=== PATIENT | male | born 1945 | race African-American/Black ===

== ENCOUNTER 2020-04-01 15:35 | Inpatient (IN) | payer OTHER, MEDICARE ==
[~2020-04-01] VITALS: Ht 177.8 cm; Wt 139.4 kg
[~2020-04-01 15:35] MED LIST: AMLO5TAB4 PO; ARMO150T2 PO; BACL20TA PO; CALC0.25 PO; CLON1PAT11 TD; DALF10TA PO; DOCU-138 PO; DOCU283E5 RC; DULO60CA44 PO; GABA-580 PO; MICO1POW2 MC; ONDA4SOL2 PO; TAMS-11 PO; TIZA-19 PO; TRAM50TA94 PO
[2020-04-01] MEDS ORDERED: SODIUM CHLORIDE 0.9% 1,000 ML IV ONE (15:48)
[2020-04-01] MEDS ORDERED: NALOXONE HCL 1 MG/ML 2ML VIAL IV ONE (16:00)
[2020-04-01 16:23] LABS: BASOPHILS % 0.7 % (0.0-2.0); EOSINOPHILS % 3.1 % (0.0-5.0); HEMATOCRIT. 30.1 % (42.0-52.0); HEMOGLOBIN. 10.1 g/dL (14.0-18.0); LYMPHOCYTES % 21.9 % (20.0-50.0); MEAN CORPUSCULAR HEMOGLOBIN 31.8 pg (28.0-32.0); MEAN CORPUSCULAR VOLUME 94.9 fL (80.0-94.0); MEAN PLATELET VOLUME 7.5 fl (7.4-10.4); MONOCYTES % 7.8 % (2.0-8.0); NEUTROPHILS % 66.5 % (40.0-76.0); PLATELET 251 x1000/uL (130-400); RED BLOOD CELL COUNT 3.17 mill/uL (4.7-6.1); RED CELL DISTRIBUTION WIDTH 15.2 % (11.6-14.6)
[2020-04-01 16:28] LABS: CHLORIDE 107 mEq/L (98-107)
[2020-04-01 16:29] LABS: INR 1.1; PROTHROMBIN TIME 11.5 sec (9.6-11.0)
[2020-04-01 16:32] LABS: ETHANOL BLOOD < 10 mg/dL
[2020-04-01 16:35] LABS: LDL CHOLESTEROL 114 mg/dL (5-100)
[2020-04-01 16:36] LABS: CREATINE KINASE 121 IU/L (39-308)
[2020-04-01] MEDS ORDERED: FUROSEMIDE 20MG/2ML VIAL IVP ONE (17:15)
[2020-04-01] MEDS ORDERED: CEFEPIME HCL 2000MG/VIAL INJ IV ONE (18:45)
[2020-04-01] MEDS ORDERED: VANCOMYCIN 1 G PREMIX 200 ML IV SCH (18:45)
[2020-04-01] MEDS ORDERED: AMPICILLIN 30MG/ML SYR IV ONE (18:45)
[2020-04-01 18:59] LABS: BG BASE EXCESS 0.9 mmol/L (-2.0-2.0); BG CARBOXYHEMOGLOBIN 0.3 % (0.5-1.5); BG DEOXYHEMOGLOBIN 3.5 % (0.0-5.0); BG FRACTION INSPIRED OXYGEN 24; BG HCO3 ACT 26.9 mmol/L (22.0-26.0); BG METHEMOGLOBIN 0.2 % (0.0-1.5); BG OXYGEN SATURATION 96.5 % (92.0-98.5); BG PCO2 48.8 mmHg (35.0-45.0); BG PH 7.359 (7.350-7.450); BG PO2 90.6 mmHg (75.0-100.0); BG SAMPLE SITE LEFT RADIAL; BG TOTAL HEMOGLOBIN 11.1 g/dL (12.0-18.0); BG VENT MODE NASAL CANNULA
[2020-04-01] MEDS ORDERED: LORAZEPAM 2MG/ML CPJ IV ONE (19:15)
[2020-04-01] MEDS ORDERED: HALOPERIDOL LACTATE 5MG/ML VIAL IM ONE (19:15)
[2020-04-01] MEDS ORDERED: CEFEPIME 2,000 MG in DEXT 5% WATER 100 ML IV SCH (19:15)
[2020-04-01] MEDS ORDERED: ETOMIDATE 2MG/ML 10ML VIAL IV ONE (20:15)
[2020-04-01] MEDS ORDERED: ROCURONIUM BROMIDE 10MG/ML VIAL 5ML IV ONE (20:15)
[2020-04-01] MEDS: ACYCLOVIR INJ 500 MG in DEXT 5% WATER 100 ML IV SCH (21:10)
[2020-04-01 21:19] LABS: CLARITY URINE CLOUDY (CLEAR); COLOR URINE YELLOW (YELLOW); KETONES URINE TRACE (NEGATIVE); LEUKOCYTE ESTERASE URINE 2+ (NEGATIVE); NITRITE URINE NEGATIVE (NEGATIVE); OCCULT BLOOD URINE NEGATIVE (NEGATIVE); PROTEIN URINE 1+ (NEGATIVE); SPECIFIC GRAVITY URINE 1.018 (1.005-1.030)
[2020-04-01 21:29] LABS: *AMPHETAMINES SCREEN URINE NEGATIVE (NEGATIVE); *BARBITURATES SCREEN URINE NEGATIVE (NEGATIVE); *BENZODIAZEPINES SCREEN URINE NEGATIVE (NEGATIVE); *COCAINE SCREEN URINE NEGATIVE (NEGATIVE); METHADONE URINE SCREEN NEGATIVE (NEGATIVE); OPIATES URINE SCREEN NEGATIVE (NEGATIVE)
[2020-04-01 21:30] LABS: CANNABINOID URINE SCREEN NEGATIVE (NEGATIVE); PHENCYCLIDINE URINE SCREEN NEGATIVE (NEGATIVE)
[2020-04-01] MEDS ORDERED: PROPOFOL 10MG/ML 100ML 100 ML IV SCH (21:30)
[2020-04-01] MEDS ORDERED: AMPICILLIN 500 MG in SODIUM CHLORIDE 0.9% 50 ML IV SCH (23:00)
[2020-04-01] MEDS ORDERED: ONDANSETRON HCL 4MG/2ML INJ IV PRN (23:15)
[2020-04-01] MEDS ORDERED: ENOXAPARIN 40MG/0.4ML SYR SUBCUT SCH (23:15)
[2020-04-01] MEDS ORDERED: IOHEXOL-350 100 ML BOTTLE ONE (23:22)
[2020-04-01 23:51] LABS: BG BASE EXCESS 3.5 mmol/L (-2.0-2.0); BG CARBOXYHEMOGLOBIN 0.3 % (0.5-1.5); BG DEOXYHEMOGLOBIN 0.8 % (0.0-5.0); BG FRACTION INSPIRED OXYGEN 100; BG HCO3 ACT 26.9 mmol/L (22.0-26.0); BG OXYGEN SATURATION 99.2 % (92.0-98.5); BG OXYHEMOGLOBIN 98.9 % (94.0-97.0); BG PCO2 36.2 mmHg (35.0-45.0); BG PH 7.489 (7.350-7.450); BG PO2 213.2 mmHg (75.0-100.0); BG SAMPLE SITE RIGHT RADIAL; BG TIDAL VOLUME(mL) 550 mL; BG TOTAL HEMOGLOBIN 10.5 g/dL (12.0-18.0); BG VENT MODE VENT - A/C; BG VENT RATE 18 set
[2020-04-02] VITALS (48 sets, daily range): BP systolic 134–226; BP diastolic 71–133
[2020-04-02] MEDS ORDERED: CEFTRIAXONE 1 G PREMIX 50 ML IV SCH
[2020-04-02] MEDS: DEXT 5%/0.45% NACL KCL 10MEQ/L 1,000 ML IV SCH ×2 (00:45→17:48)
[2020-04-02] MEDS: ACYCLOVIR INJ 500 MG in DEXT 5% WATER 100 ML IV SCH (02:45)
[2020-04-02 07:52] LABS: BASOPHILS % 0.5 % (0.0-2.0); EOSINOPHILS % 3.3 % (0.0-5.0); HEMATOCRIT. 34.2 % (42.0-52.0); HEMOGLOBIN. 11.7 g/dL (14.0-18.0); LYMPHOCYTES % 16.7 % (20.0-50.0); MEAN CORPUSCULAR VOLUME 93.3 fL (80.0-94.0); MEAN PLATELET VOLUME 7.2 fl (7.4-10.4); MONOCYTES % 10.1 % (2.0-8.0); NEUTROPHILS % 69.4 % (40.0-76.0); PLATELET 244 x1000/uL (130-400); RED BLOOD CELL COUNT 3.67 mill/uL (4.7-6.1)
[2020-04-02 08:09] LABS: CHLORIDE 107 mEq/L (98-107)
[2020-04-02] MEDS ORDERED: LIDOCAINE HCL 1% 20ML VIAL (Pyxis) INJ ONE (08:34)
[2020-04-02] MEDS ORDERED: ENOXAPARIN 30MG/0.3ML SYR SUBCUT SCH (09:00)
[2020-04-02] MEDS ORDERED: FENTANYL CITRATE/PF 1,000 MCG in SODIUM CHLORIDE 0.9% 80 ML IV PRN (10:00)
[2020-04-02] MEDS ORDERED: MIDAZOLAM HCL 100 MG in DEXT 5% WATER 80 ML IV PRN (10:00)
[2020-04-02 10:11] LABS: BG BASE EXCESS 1.5 mmol/L (-2.0-2.0); BG CARBOXYHEMOGLOBIN 0.3 % (0.5-1.5); BG FRACTION INSPIRED OXYGEN 60; BG HCO3 ACT 27.4 mmol/L (22.0-26.0); BG METHEMOGLOBIN 0.4 % (0.0-1.5); BG OXYHEMOGLOBIN 98.3 % (94.0-97.0); BG PCO2 48.3 mmHg (35.0-45.0); BG PH 7.372 (7.350-7.450); BG PO2 200.3 mmHg (75.0-100.0); BG SAMPLE SITE RIGHT RADIAL; BG TIDAL VOLUME(mL) 550 mL; BG TOTAL HEMOGLOBIN 13.3 g/dL (12.0-18.0); BG VENT MODE VENT - A/C; BG VENT RATE 18 set
[2020-04-02] MEDS ORDERED: ENALAPRIL 2.5MG/2ML VIAL 2ML IV SCH (12:00)
[2020-04-02] MEDS ORDERED: POTASSIUM CHLORIDE INJ 40 MEQ in DEXT 5% WATER 250 ML IV NR (13:00)
[2020-04-02 13:24] LABS: T4 FREE 1.26 ng/dL (0.76-1.46)
[2020-04-02] MEDS: HYDRALAZINE 20MG/ML VIAL IV PRN ×2 (13:24→20:28)
[2020-04-02] MEDS ORDERED: MICO71PO11 TP (13:56)
[2020-04-02] MEDS ORDERED: ATEN100T PO (13:56)
[2020-04-02] MEDS ORDERED: FINA5TAB11 PO (13:56)
[2020-04-02] MEDS ORDERED: HYDR-4135 PO (13:56)
[2020-04-02] MEDS ORDERED: MINO2.5T2 PO (13:56)
[2020-04-02] MEDS ORDERED: TIZA4CAP6 PO (13:56)
[2020-04-02] MEDS ORDERED: ASCO500C15 PO (13:56)
[2020-04-02] MEDS ORDERED: FURO20TA4 PO (13:56)
[2020-04-02] MEDS ORDERED: AMIT25TA9 PO (13:56)
[2020-04-02] MEDS ORDERED: AMAN100C16 PO (13:56)
[2020-04-02] MEDS: NITROGLYCERIN 50MG PREMIX 250 ML IV PRN (16:18)
[2020-04-02] MEDS ORDERED: IPRATROPIUM/ALBUTEROL 0.5-3(2.5)MG/3ML NEB HHN PRN (17:00)
[2020-04-02 17:30] LABS: CREATINE KINASE 189 IU/L (39-308)
[2020-04-02 17:31] LABS: CREATINE KINASE MB FRACTION 3.7 ng/mL (0.5-3.6)
[2020-04-02] MEDS: LEVOFLOXACIN 750MG PREMIX 150 ML IV SCH (17:49)
[2020-04-02] MEDS: ENALAPRIL 2.5MG/2ML VIAL 2ML IV SCH (17:49)
[2020-04-02] MEDS: FENTANYL CITRATE/PF 1,000 MCG in SODIUM CHLORIDE 0.9% 80 ML IV PRN (18:42)
[2020-04-02] MEDS: MIDAZOLAM HCL 100 MG in DEXT 5% WATER 80 ML IV PRN (18:43)
[2020-04-02] MEDS: IPRATROPIUM/ALBUTEROL 0.5-3(2.5)MG/3ML NEB HHN SCH (21:34)
[2020-04-02 22:33] LABS: VITAMIN B12 SERUM 439 pg/mL (211-911)
[2020-04-03] VITALS (92 sets, daily range): BP systolic 112–200; BP diastolic 57–116
[2020-04-03] MEDS: ENALAPRIL 2.5MG/2ML VIAL 2ML IV SCH ×4 (00:01→17:26)
[2020-04-03 00:37] LABS: CREATINE KINASE 140 IU/L (39-308)
[2020-04-03 00:38] LABS: CREATINE KINASE MB FRACTION 1.7 ng/mL (0.5-3.6)
[2020-04-03] MEDS: HYDRALAZINE 20MG/ML VIAL IV PRN ×2 (02:13→18:45)
[2020-04-03] MEDS: IPRATROPIUM/ALBUTEROL 0.5-3(2.5)MG/3ML NEB HHN SCH ×4 (03:59→21:25)
[2020-04-03 06:03] LABS: CREATINE KINASE 131 IU/L (39-308)
[2020-04-03 08:42] LABS: BG BASE EXCESS 6.9 mmol/L (-2.0-2.0); BG CARBOXYHEMOGLOBIN 0.2 % (0.5-1.5); BG DEOXYHEMOGLOBIN 2.2 % (0.0-5.0); BG FRACTION INSPIRED OXYGEN 40; BG HCO3 ACT 30.7 mmol/L (22.0-26.0); BG METHEMOGLOBIN 0.8 % (0.0-1.5); BG OXYGEN SATURATION 97.8 % (92.0-98.5); BG OXYHEMOGLOBIN 96.8 % (94.0-97.0); BG PCO2 40.6 mmHg (35.0-45.0); BG PH 7.497 (7.350-7.450); BG PO2 115.8 mmHg (75.0-100.0); BG SAMPLE SITE RIGHT RADIAL; BG TIDAL VOLUME(mL) 550 mL; BG TOTAL HEMOGLOBIN 11.5 g/dL (12.0-18.0); BG VENT MODE VENT - A/C; BG VENT RATE 18 set
[2020-04-03] MEDS: PANTOPRAZOLE SODIUM 40 MG/VIAL IV SCH (09:04)
[2020-04-03] MEDS: ENOXAPARIN 40MG/0.4ML SYR SUBCUT SCH (09:05)
[2020-04-03 09:13] LABS: BASOPHILS % 0.8 % (0.0-2.0); EOSINOPHILS % 1.9 % (0.0-5.0); HEMATOCRIT. 31.8 % (42.0-52.0); HEMOGLOBIN. 10.8 g/dL (14.0-18.0); LYMPHOCYTES % 15.3 % (20.0-50.0); MEAN CORPUSCULAR HEMOGLOBIN 31.7 pg (28.0-32.0); MEAN CORPUSCULAR VOLUME 93.7 fL (80.0-94.0); MEAN PLATELET VOLUME 7.9 fl (7.4-10.4); MONOCYTES % 8.7 % (2.0-8.0); NEUTROPHILS % 73.3 % (40.0-76.0); PLATELET 268 x1000/uL (130-400); RED BLOOD CELL COUNT 3.39 mill/uL (4.7-6.1); RED CELL DISTRIBUTION WIDTH 15.3 % (11.6-14.6)
[2020-04-03 09:14] LABS: CHLORIDE 107 mEq/L (98-107)
[2020-04-03] MEDS: DEXT 5%/0.45% NACL KCL 10MEQ/L 1,000 ML IV SCH ×2 (10:35→16:49)
[2020-04-03] MEDS: FENTANYL CITRATE/PF 1,000 MCG in SODIUM CHLORIDE 0.9% 80 ML IV PRN (10:36)
[2020-04-03] MEDS ORDERED: POTASSIUM CHLORIDE INJ 40 MEQ in DEXT 5% WATER 250 ML IV SCH (12:00)
[2020-04-03] MEDS ORDERED: VANCOMYCIN 1 G PREMIX 200 ML IV SCH (12:00)
[2020-04-03] MEDS: NITROGLYCERIN 50MG PREMIX 250 ML IV PRN ×2 (13:49→18:05)
[2020-04-03] MEDS: METOCLOPRAMIDE HCL 10MG/2ML VIAL IV SCH ×2 (14:29→22:13)
[2020-04-03] MEDS: LEVOFLOXACIN 750MG PREMIX 150 ML IV SCH (17:25)
[2020-04-03] MEDS: ACETAMINOPHEN 325MG TABLET PO PRN (20:25)
[2020-04-04] VITALS (44 sets, daily range): BP systolic 96–221; BP diastolic 58–160
[2020-04-04] MEDS: IPRATROPIUM/ALBUTEROL 0.5-3(2.5)MG/3ML NEB HHN SCH ×4 (02:16→19:57)
[2020-04-04] MEDS: METOCLOPRAMIDE HCL 10MG/2ML VIAL IV SCH ×3 (06:32→21:22)
[2020-04-04] MEDS: ENALAPRIL 2.5MG/2ML VIAL 2ML IV SCH ×5 (06:33→23:25)
[2020-04-04] MEDS: NITROGLYCERIN 50MG PREMIX 250 ML IV PRN ×3 (06:42→20:47)
[2020-04-04 07:49] LABS: BASOPHILS % 0.5 % (0.0-2.0); EOSINOPHILS % 0.7 % (0.0-5.0); HEMATOCRIT. 29.4 % (42.0-52.0); HEMOGLOBIN. 9.9 g/dL (14.0-18.0); LYMPHOCYTES % 14.3 % (20.0-50.0); MEAN CORPUSCULAR HEMOGLOBIN 31.8 pg (28.0-32.0); MEAN CORPUSCULAR VOLUME 94.3 fL (80.0-94.0); MEAN PLATELET VOLUME 8.2 fl (7.4-10.4); MONOCYTES % 10.9 % (2.0-8.0); NEUTROPHILS % 73.6 % (40.0-76.0); PLATELET 225 x1000/uL (130-400); RED BLOOD CELL COUNT 3.12 mill/uL (4.7-6.1); RED CELL DISTRIBUTION WIDTH 15.4 % (11.6-14.6)
[2020-04-04 08:02] LABS: BG BASE EXCESS 7.5 mmol/L (-2.0-2.0); BG CARBOXYHEMOGLOBIN 0.3 % (0.5-1.5); BG FRACTION INSPIRED OXYGEN 40; BG HCO3 ACT 32.5 mmol/L (22.0-26.0); BG METHEMOGLOBIN 0.2 % (0.0-1.5); BG OXYHEMOGLOBIN 96.5 % (94.0-97.0); BG PCO2 47.9 mmHg (35.0-45.0); BG PO2 92.8 mmHg (75.0-100.0); BG SAMPLE SITE RIGHT RADIAL; BG TIDAL VOLUME(mL) 550 mL; BG TOTAL HEMOGLOBIN 10.9 g/dL (12.0-18.0); BG VENT MODE VENT - A/C; BG VENT RATE 16 set
[2020-04-04 09:54] LABS: CHLORIDE 106 mEq/L (98-107)
[2020-04-04] MEDS: ENOXAPARIN 40MG/0.4ML SYR SUBCUT SCH (09:56)
[2020-04-04] MEDS: PANTOPRAZOLE SODIUM 40 MG/VIAL IV SCH (09:56)
[2020-04-04] MEDS: ACETAMINOPHEN 325MG TABLET PO PRN ×3 (10:27→12:12)
[2020-04-04] MEDS: HYDRALAZINE HCL 50MG TABLET PO SCH ×2 (14:12→21:22)
[2020-04-04] MEDS: LEVOFLOXACIN 750MG PREMIX 150 ML IV SCH (19:44)
[2020-04-04] MEDS: HYDRALAZINE 20MG/ML VIAL IV PRN (21:22)
[2020-04-04] MEDS ORDERED: HYDRALAZINE HCL 100MG TABLET PO NR (22:45)
[2020-04-05] VITALS (58 sets, daily range): BP systolic 105–204; BP diastolic 49–126
[2020-04-05] MEDS: NITROGLYCERIN 50MG PREMIX 250 ML IV PRN ×5 (00:57→20:29)
[2020-04-05] MEDS: IPRATROPIUM/ALBUTEROL 0.5-3(2.5)MG/3ML NEB HHN SCH ×4 (02:03→20:14)
[2020-04-05] MEDS: DEXT 5%/0.45% NACL KCL 10MEQ/L 1,000 ML IV SCH (04:14)
[2020-04-05] MEDS: ENALAPRIL 2.5MG/2ML VIAL 2ML IV SCH ×4 (05:17→23:08)
[2020-04-05] MEDS: METOCLOPRAMIDE HCL 10MG/2ML VIAL IV SCH ×3 (05:17→21:58)
[2020-04-05] MEDS: HYDRALAZINE HCL 50MG TABLET PO SCH (05:17)
[2020-04-05 05:52] LABS: BASOPHILS % 0.8 % (0.0-2.0); EOSINOPHILS % 3.3 % (0.0-5.0); HEMATOCRIT. 29.7 % (42.0-52.0); LYMPHOCYTES % 10.8 % (20.0-50.0); MEAN CORPUSCULAR VOLUME 94.9 fL (80.0-94.0); MEAN PLATELET VOLUME 8.3 fl (7.4-10.4); MONOCYTES % 8.4 % (2.0-8.0); NEUTROPHILS % 76.7 % (40.0-76.0); PLATELET 234 x1000/uL (130-400); RED BLOOD CELL COUNT 3.13 mill/uL (4.7-6.1); RED CELL DISTRIBUTION WIDTH 15.3 % (11.6-14.6)
[2020-04-05 06:02] LABS: CHLORIDE 103 mEq/L (98-107)
[2020-04-05] MEDS: PANTOPRAZOLE SODIUM 40 MG/VIAL IV SCH (09:22)
[2020-04-05] MEDS: ENOXAPARIN 40MG/0.4ML SYR SUBCUT SCH (09:24)
[2020-04-05] MEDS: MIDAZOLAM HCL 100 MG in DEXT 5% WATER 80 ML IV PRN (10:22)
[2020-04-05] MEDS: ACETAMINOPHEN 325MG TABLET PO PRN (10:53)
[2020-04-05] MEDS ORDERED: DEXT IV SCH (12:30)
[2020-04-05] MEDS ORDERED: NACL IV SCH (12:30)
[2020-04-05] MEDS: LISINOPRIL 40MG TABLET PO SCH (13:09)
[2020-04-05] MEDS: DEXT 5%/0.45% NACL 1000ML 1,000 ML IV SCH (13:17)
[2020-04-05] MEDS: HYDRALAZINE HCL 100MG TABLET PO SCH ×2 (14:27→21:58)
[2020-04-05] MEDS: CLONIDINE 0.1MG TABLET PO SCH ×2 (14:31→21:58)
[2020-04-05] MEDS: LEVOFLOXACIN 750MG PREMIX 150 ML IV SCH (17:10)
[2020-04-05] MEDS: HYDRALAZINE 20MG/ML VIAL IV PRN (18:56)
[2020-04-05] MEDS: FENTANYL CITRATE/PF 1,000 MCG in SODIUM CHLORIDE 0.9% 80 ML IV PRN (20:29)
[2020-04-05] MEDS ORDERED: LABETALOL HCL 100MG TABLET PO SCH (21:00)
[2020-04-06] VITALS (80 sets, daily range): BP systolic 92–175; BP diastolic 47–124
[2020-04-06] MEDS: NITROGLYCERIN 50MG PREMIX 250 ML IV PRN (01:11)
[2020-04-06] MEDS: DEXT 5%/0.45% NACL 1000ML 1,000 ML IV SCH ×2 (01:11→15:19)
[2020-04-06] MEDS: IPRATROPIUM/ALBUTEROL 0.5-3(2.5)MG/3ML NEB HHN SCH ×4 (02:03→20:38)
[2020-04-06] MEDS: MIDAZOLAM HCL 100 MG in DEXT 5% WATER 80 ML IV PRN (02:16)
[2020-04-06] MEDS: HYDRALAZINE HCL 100MG TABLET PO SCH ×3 (05:08→21:58)
[2020-04-06] MEDS: CLONIDINE 0.1MG TABLET PO SCH ×3 (05:08→21:58)
[2020-04-06] MEDS: METOCLOPRAMIDE HCL 10MG/2ML VIAL IV SCH ×3 (05:08→21:58)
[2020-04-06] MEDS: ENALAPRIL 2.5MG/2ML VIAL 2ML IV SCH ×4 (05:09→23:51)
[2020-04-06] MEDS: ENOXAPARIN 40MG/0.4ML SYR SUBCUT SCH (08:32)
[2020-04-06] MEDS: PANTOPRAZOLE SODIUM 40 MG/VIAL IV SCH (08:32)
[2020-04-06] MEDS: LISINOPRIL 40MG TABLET PO SCH (08:32)
[2020-04-06 08:50] LABS: BG BASE EXCESS 3.1 mmol/L (-2.0-2.0); BG CARBOXYHEMOGLOBIN 0.3 % (0.5-1.5); BG DEOXYHEMOGLOBIN 1.5 % (0.0-5.0); BG FRACTION INSPIRED OXYGEN 40; BG HCO3 ACT 27.7 mmol/L (22.0-26.0); BG METHEMOGLOBIN 0.3 % (0.0-1.5); BG OXYGEN SATURATION 98.5 % (92.0-98.5); BG OXYHEMOGLOBIN 97.9 % (94.0-97.0); BG PCO2 42.7 mmHg (35.0-45.0); BG PO2 113.3 mmHg (75.0-100.0); BG SAMPLE SITE RIGHT RADIAL; BG TIDAL VOLUME(mL) 550 mL; BG TOTAL HEMOGLOBIN 10.5 g/dL (12.0-18.0); BG VENT MODE VENT - A/C; BG VENT RATE 16 set
[2020-04-06] MEDS ORDERED: FUROSEMIDE 40MG/4ML VIAL IVP SCH (15:15)
[2020-04-06] MEDS: LEVOFLOXACIN 750MG PREMIX 150 ML IV SCH (17:00)
[2020-04-07] VITALS (48 sets, daily range): BP systolic 100–175; BP diastolic 46–112
[2020-04-07] MEDS: IPRATROPIUM/ALBUTEROL 0.5-3(2.5)MG/3ML NEB HHN SCH ×4 (02:27→20:49)
[2020-04-07] MEDS: DEXT 5%/0.45% NACL 1000ML 1,000 ML IV SCH ×2 (05:45→17:06)
[2020-04-07] MEDS: METOCLOPRAMIDE HCL 10MG/2ML VIAL IV SCH ×3 (05:46→21:03)
[2020-04-07] MEDS: CLONIDINE 0.1MG TABLET PO SCH ×3 (05:46→21:03)
[2020-04-07] MEDS: HYDRALAZINE HCL 100MG TABLET PO SCH ×3 (05:46→21:03)
[2020-04-07] MEDS: ENALAPRIL 2.5MG/2ML VIAL 2ML IV SCH ×3 (06:22→17:05)
[2020-04-07 07:29] LABS: CHLORIDE 101 mEq/L (98-107); HEMATOCRIT. 33.3 % (42.0-52.0); HEMOGLOBIN. 11.1 g/dL (14.0-18.0); MEAN CORPUSCULAR HEMOGLOBIN 31.4 pg (28.0-32.0); MEAN CORPUSCULAR VOLUME 94.1 fL (80.0-94.0); MEAN PLATELET VOLUME 8.4 fl (7.4-10.4); PLATELET 268 x1000/uL (130-400); RED BLOOD CELL COUNT 3.54 mill/uL (4.7-6.1)
[2020-04-07] MEDS: PANTOPRAZOLE SODIUM 40 MG/VIAL IV SCH (08:30)
[2020-04-07] MEDS: LISINOPRIL 40MG TABLET PO SCH (08:30)
[2020-04-07] MEDS: ENOXAPARIN 40MG/0.4ML SYR SUBCUT SCH (08:30)
[2020-04-07 09:38] LABS: BG BASE EXCESS 2.4 mmol/L (-2.0-2.0); BG CARBOXYHEMOGLOBIN 0.1 % (0.5-1.5); BG DEOXYHEMOGLOBIN 1.5 % (0.0-5.0); BG FRACTION INSPIRED OXYGEN 40; BG HCO3 ACT 26.4 mmol/L (22.0-26.0); BG METHEMOGLOBIN 0.2 % (0.0-1.5); BG OXYGEN SATURATION 98.5 % (92.0-98.5); BG OXYHEMOGLOBIN 98.2 % (94.0-97.0); BG PH 7.449 (7.350-7.450); BG PO2 117.2 mmHg (75.0-100.0); BG SAMPLE SITE RIGHT RADIAL; BG TIDAL VOLUME(mL) 550 mL; BG TOTAL HEMOGLOBIN 11.8 g/dL (12.0-18.0); BG VENT MODE VENT - A/C; BG VENT RATE 16 set
[2020-04-07] MEDS ORDERED: POTASSIUM CHLORIDE INJ 40 MEQ in DEXT 5% WATER 250 ML IV ONE (10:00)
[2020-04-07 10:51] LABS: PLATELET ESTIMATE NORMAL
[2020-04-07] MEDS ORDERED: FUROSEMIDE 40MG/4ML VIAL IVP NR (12:00)
[2020-04-07 12:04] LABS: BG BASE EXCESS 3.5 mmol/L (-2.0-2.0); BG CARBOXYHEMOGLOBIN 0.2 % (0.5-1.5); BG CPAP (cmH2O) 0 cm(H2O); BG DEOXYHEMOGLOBIN 1.5 % (0.0-5.0); BG FRACTION INSPIRED OXYGEN 40; BG HCO3 ACT 27.5 mmol/L (22.0-26.0); BG METHEMOGLOBIN 0.3 % (0.0-1.5); BG OXYGEN SATURATION 98.5 % (92.0-98.5); BG PCO2 39.6 mmHg (35.0-45.0); BG PO2 114.2 mmHg (75.0-100.0); BG SAMPLE SITE RIGHT RADIAL; BG TOTAL HEMOGLOBIN 12.1 g/dL (12.0-18.0); BG VENT MODE VENT - CPAP
[2020-04-07] MEDS: METOPROLOL TARTRATE 25MG TABLET PO SCH (21:03)
[2020-04-07] MEDS: MORPHINE SULFATE 2 MG/ML CPJ (NOT FOR IM USE) IV PRN (21:03)
[2020-04-08] VITALS (45 sets, daily range): BP systolic 139–212; BP diastolic 37–125
[2020-04-08] MEDS: ENALAPRIL 2.5MG/2ML VIAL 2ML IV SCH ×4 (00:14→17:52)
[2020-04-08] MEDS: HYDRALAZINE 20MG/ML VIAL IV PRN ×5 (00:50→17:53)
[2020-04-08] MEDS: IPRATROPIUM/ALBUTEROL 0.5-3(2.5)MG/3ML NEB HHN SCH ×4 (02:09→22:26)
[2020-04-08] MEDS: MORPHINE SULFATE 2 MG/ML CPJ (NOT FOR IM USE) IV PRN (02:12)
[2020-04-08] MEDS: METOCLOPRAMIDE HCL 10MG/2ML VIAL IV SCH ×3 (05:21→21:24)
[2020-04-08] MEDS: HYDRALAZINE HCL 100MG TABLET PO SCH ×3 (05:22→21:25)
[2020-04-08] MEDS: CLONIDINE 0.1MG TABLET PO SCH (05:22)
[2020-04-08 06:25] LABS: BASOPHILS % 0.5 % (0.0-2.0); EOSINOPHILS % 1.5 % (0.0-5.0); HEMATOCRIT. 32.6 % (42.0-52.0); HEMOGLOBIN. 11.2 g/dL (14.0-18.0); LYMPHOCYTES % 10.8 % (20.0-50.0); MEAN CORPUSCULAR HEMOGLOBIN 32.3 pg (28.0-32.0); MEAN CORPUSCULAR VOLUME 94.1 fL (80.0-94.0); MEAN PLATELET VOLUME 8.8 fl (7.4-10.4); MONOCYTES % 10.2 % (2.0-8.0); PLATELET 311 x1000/uL (130-400); RED BLOOD CELL COUNT 3.46 mill/uL (4.7-6.1); RED CELL DISTRIBUTION WIDTH 15.2 % (11.6-14.6)
[2020-04-08 06:29] LABS: CHLORIDE 101 mEq/L (98-107)
[2020-04-08] MEDS: DEXT 5%/0.45% NACL 1000ML 1,000 ML IV SCH (07:21)
[2020-04-08] MEDS ORDERED: POTASSIUM CHLORIDE 20MEQ/PACKET PO SCH (08:30)
[2020-04-08] MEDS: PANTOPRAZOLE SODIUM 40 MG/VIAL IV SCH (09:07)
[2020-04-08] MEDS: LISINOPRIL 40MG TABLET PO SCH (09:07)
[2020-04-08] MEDS: METOPROLOL TARTRATE 25MG TABLET PO SCH (09:07)
[2020-04-08 09:13] LABS: PHOSPHORUS 1.8 mg/dL (2.5-4.9)
[2020-04-08] MEDS: ENOXAPARIN 40MG/0.4ML SYR SUBCUT SCH (09:24)
[2020-04-08] MEDS ORDERED: POTASSIUM CHLORIDE INJ 40 MEQ in DEXT 5% WATER 250 ML IV SCH (10:00)
[2020-04-08] MEDS ORDERED: POTASSIUM-SODIUM PHOSPHATE POWDER PACKET PO NR (10:30)
[2020-04-08] MEDS: LOSARTAN POTASSIUM 100 MG TABLET PO SCH (11:17)
[2020-04-08] MEDS: CLONIDINE 0.2MG TABLET PO SCH ×2 (15:11→21:25)
[2020-04-08] MEDS: METOPROLOL TARTRATE 50MG TABLET PO SCH (21:25)
[2020-04-08] MEDS: ATORVASTATIN CALCIUM 20MG TABLET PO SCH (21:26)
[2020-04-09] VITALS (27 sets, daily range): BP systolic 124–198; BP diastolic 59–109
[2020-04-09] MEDS: ENALAPRIL 2.5MG/2ML VIAL 2ML IV SCH ×4 (00:03→18:08)
[2020-04-09] MEDS: DEXT 5%/0.45% NACL 1000ML 1,000 ML IV SCH ×3 (00:03→23:21)
[2020-04-09] MEDS: IPRATROPIUM/ALBUTEROL 0.5-3(2.5)MG/3ML NEB HHN SCH ×4 (01:43→21:59)
[2020-04-09] MEDS: METOCLOPRAMIDE HCL 10MG/2ML VIAL IV SCH ×3 (05:48→21:01)
[2020-04-09] MEDS: CLONIDINE 0.2MG TABLET PO SCH ×3 (05:48→21:00)
[2020-04-09] MEDS: HYDRALAZINE HCL 100MG TABLET PO SCH ×3 (05:48→21:01)
[2020-04-09 05:55] LABS: HEMATOCRIT. 31.3 % (42.0-52.0); HEMOGLOBIN. 10.5 g/dL (14.0-18.0); MEAN CORPUSCULAR HEMOGLOBIN 31.6 pg (28.0-32.0); MEAN CORPUSCULAR VOLUME 93.9 fL (80.0-94.0); PLATELET 294 x1000/uL (130-400); RED BLOOD CELL COUNT 3.33 mill/uL (4.7-6.1)
[2020-04-09 05:59] LABS: CHLORIDE 105 mEq/L (98-107)
[2020-04-09] MEDS ORDERED: POTASSIUM CHLORIDE 20MEQ TABLET SR PO NR (08:00)
[2020-04-09] MEDS ORDERED: POTASSIUM CHLORIDE INJ 40 MEQ in DEXT 5% WATER 250 ML IV SCH (09:00)
[2020-04-09] MEDS: PANTOPRAZOLE SODIUM 40 MG/VIAL IV SCH (09:02)
[2020-04-09] MEDS: LISINOPRIL 40MG TABLET PO SCH (09:02)
[2020-04-09] MEDS: METOPROLOL TARTRATE 50MG TABLET PO SCH ×2 (09:03→21:56)
[2020-04-09] MEDS: ENOXAPARIN 40MG/0.4ML SYR SUBCUT SCH (09:03)
[2020-04-09] MEDS: LOSARTAN POTASSIUM 100 MG TABLET PO SCH (09:03)
[2020-04-09] MEDS: HYDRALAZINE 20MG/ML VIAL IV PRN (09:16)
[2020-04-09 11:47] LABS: PLATELET ESTIMATE NORMAL
[2020-04-09] MEDS: ATORVASTATIN CALCIUM 20MG TABLET PO SCH (21:00)
[2020-04-10] VITALS (13 sets, daily range): BP systolic 135–176; BP diastolic 69–105
[2020-04-10] MEDS: ENALAPRIL 2.5MG/2ML VIAL 2ML IV SCH ×4 (00:29→17:14)
[2020-04-10] MEDS: HYDRALAZINE 20MG/ML VIAL IV PRN ×2 (03:14→16:27)
[2020-04-10] MEDS: METOCLOPRAMIDE HCL 10MG/2ML VIAL IV SCH ×3 (05:20→21:40)
[2020-04-10] MEDS: CLONIDINE 0.2MG TABLET PO SCH ×3 (05:21→21:39)
[2020-04-10] MEDS: HYDRALAZINE HCL 100MG TABLET PO SCH ×3 (05:21→21:39)
[2020-04-10 06:58] LABS: HEMATOCRIT. 30.5 % (42.0-52.0); HEMOGLOBIN. 10.2 g/dL (14.0-18.0); MEAN CORPUSCULAR VOLUME 92.8 fL (80.0-94.0); MEAN PLATELET VOLUME 8.3 fl (7.4-10.4); PLATELET 300 x1000/uL (130-400); RED BLOOD CELL COUNT 3.28 mill/uL (4.7-6.1); RED CELL DISTRIBUTION WIDTH 15.4 % (11.6-14.6)
[2020-04-10 07:06] LABS: CHLORIDE 107 mEq/L (98-107)
[2020-04-10] MEDS: PANTOPRAZOLE SODIUM 40 MG/VIAL IV SCH (08:15)
[2020-04-10] MEDS: LISINOPRIL 40MG TABLET PO SCH (08:16)
[2020-04-10] MEDS: LOSARTAN POTASSIUM 100 MG TABLET PO SCH (08:17)
[2020-04-10] MEDS: ENOXAPARIN 40MG/0.4ML SYR SUBCUT SCH (08:20)
[2020-04-10] MEDS: METOPROLOL TARTRATE 50MG TABLET PO SCH ×2 (08:20→20:06)
[2020-04-10] MEDS: IPRATROPIUM/ALBUTEROL 0.5-3(2.5)MG/3ML NEB HHN SCH ×2 (08:58→13:03)
[2020-04-10] MEDS ORDERED: POTASSIUM CHLORIDE INJ 40 MEQ in DEXT 5% WATER 250 ML IV SCH (09:00)
[2020-04-10 12:03] LABS: PLATELET ESTIMATE NORMAL
[2020-04-10] MEDS: DEXT 5%/0.45% NACL 1000ML 1,000 ML IV SCH (17:18)
[2020-04-10] MEDS: ATORVASTATIN CALCIUM 20MG TABLET PO SCH (20:05)
[2020-04-11] VITALS (12 sets, daily range): BP systolic 152–193; BP diastolic 84–112
[2020-04-11] MEDS: IPRATROPIUM/ALBUTEROL 0.5-3(2.5)MG/3ML NEB HHN SCH ×5 (00:03→20:12)
[2020-04-11] MEDS: ENALAPRIL 2.5MG/2ML VIAL 2ML IV SCH ×4 (00:52→17:48)
[2020-04-11] MEDS: DEXT 5%/0.45% NACL 1000ML 1,000 ML IV SCH ×2 (02:18→14:39)
[2020-04-11] MEDS: HYDRALAZINE 20MG/ML VIAL IV PRN ×3 (03:54→23:10)
[2020-04-11] MEDS: METOCLOPRAMIDE HCL 10MG/2ML VIAL IV SCH ×3 (06:12→21:44)
[2020-04-11] MEDS: CLONIDINE 0.2MG TABLET PO SCH ×3 (06:13→21:43)
[2020-04-11] MEDS: HYDRALAZINE HCL 100MG TABLET PO SCH ×3 (06:13→21:44)
[2020-04-11 06:33] LABS: CHLORIDE 107 mEq/L (98-107)
[2020-04-11] MEDS: ACETAMINOPHEN 325MG TABLET PO PRN (08:32)
[2020-04-11] MEDS: PANTOPRAZOLE SODIUM 40 MG/VIAL IV SCH (08:32)
[2020-04-11] MEDS: ENOXAPARIN 40MG/0.4ML SYR SUBCUT SCH (08:32)
[2020-04-11] MEDS: LOSARTAN POTASSIUM 100 MG TABLET PO SCH (08:33)
[2020-04-11] MEDS: METOPROLOL TARTRATE 50MG TABLET PO SCH ×2 (08:33→20:01)
[2020-04-11] MEDS: LISINOPRIL 40MG TABLET PO SCH (08:34)
[2020-04-11] MEDS ORDERED: POTASSIUM CHLORIDE 20MEQ TABLET SR PO NR (13:30)
[2020-04-11] MEDS ORDERED: METOLAZONE 10MG TABLET PO SCH (17:00)
[2020-04-11] MEDS ORDERED: POTASSIUM CHLORIDE 20MEQ TABLET SR PO SCH (18:00)
[2020-04-11] MEDS: ATORVASTATIN CALCIUM 20MG TABLET PO SCH (20:00)
[2020-04-12] VITALS (14 sets, daily range): BP systolic 141–196; BP diastolic 69–106
[2020-04-12] MEDS: ENALAPRIL 2.5MG/2ML VIAL 2ML IV SCH ×4 (01:26→17:44)
[2020-04-12] MEDS: METOCLOPRAMIDE HCL 10MG/2ML VIAL IV SCH ×3 (06:22→21:16)
[2020-04-12] MEDS: CLONIDINE 0.2MG TABLET PO SCH ×3 (06:23→21:17)
[2020-04-12] MEDS: HYDRALAZINE HCL 100MG TABLET PO SCH ×3 (06:32→21:17)
[2020-04-12] MEDS: IPRATROPIUM/ALBUTEROL 0.5-3(2.5)MG/3ML NEB HHN SCH ×4 (07:56→20:38)
[2020-04-12 08:20] LABS: CHLORIDE 104 mEq/L (98-107)
[2020-04-12] MEDS: PANTOPRAZOLE SODIUM 40 MG/VIAL IV SCH (08:51)
[2020-04-12] MEDS: LOSARTAN POTASSIUM 100 MG TABLET PO SCH (08:52)
[2020-04-12] MEDS: ZINC SULFATE 220 MG ( 50 ) CAPSULE PO SCH (08:52)
[2020-04-12] MEDS: ASCORBIC ACID 250 MG TABLET PO SCH (08:52)
[2020-04-12] MEDS: LISINOPRIL 40MG TABLET PO SCH (08:52)
[2020-04-12] MEDS: METOPROLOL TARTRATE 50MG TABLET PO SCH ×2 (08:52→21:15)
[2020-04-12] MEDS: ENOXAPARIN 40MG/0.4ML SYR SUBCUT SCH (08:53)
[2020-04-12] MEDS: NIFEDIPINE XL 90MG TAB PO SCH (08:59)
[2020-04-12] MEDS: HYDRALAZINE 20MG/ML VIAL IV PRN ×2 (10:57→18:20)
[2020-04-12] MEDS: ATORVASTATIN CALCIUM 20MG TABLET PO SCH (21:17)
[2020-04-13] VITALS (12 sets, daily range): BP systolic 134–184; BP diastolic 61–96
[2020-04-13] MEDS: ENALAPRIL 2.5MG/2ML VIAL 2ML IV SCH (00:21)
[2020-04-13] MEDS: IPRATROPIUM/ALBUTEROL 0.5-3(2.5)MG/3ML NEB HHN SCH ×4 (00:49→18:00)
[2020-04-13] MEDS ORDERED: HYDRALAZINE 20MG/ML VIAL IV PRN (01:15)
[2020-04-13] MEDS: HYDRALAZINE HCL 100MG TABLET PO SCH ×3 (06:13→22:34)
[2020-04-13] MEDS: METOCLOPRAMIDE HCL 10MG/2ML VIAL IV SCH ×3 (06:16→22:34)
[2020-04-13] MEDS: OMEPRAZOLE 20MG CAPSULE EXTENDED RELEASE PO SCH ×2 (06:17→19:58)
[2020-04-13] MEDS: CLONIDINE 0.2MG TABLET PO SCH ×3 (06:17→22:34)
[2020-04-13] MEDS: ENOXAPARIN 40MG/0.4ML SYR SUBCUT SCH (09:48)
[2020-04-13] MEDS: POTASSIUM CHLORIDE 20MEQ TABLET SR PO SCH ×2 (09:48→17:00)
[2020-04-13] MEDS: ZINC SULFATE 220 MG ( 50 ) CAPSULE PO SCH (09:48)
[2020-04-13] MEDS: ASCORBIC ACID 250 MG TABLET PO SCH (09:48)
[2020-04-13] MEDS: LOSARTAN POTASSIUM 100 MG TABLET PO SCH (09:49)
[2020-04-13] MEDS: METOLAZONE 10MG TABLET PO SCH (09:49)
[2020-04-13] MEDS: NIFEDIPINE XL 90MG TAB PO SCH (09:49)
[2020-04-13] MEDS: METOPROLOL TARTRATE 50MG TABLET PO SCH ×2 (09:49→19:58)
[2020-04-13] MEDS: LISINOPRIL 40MG TABLET PO SCH (09:50)
[2020-04-13] MEDS: ATORVASTATIN CALCIUM 20MG TABLET PO SCH (19:58)
[2020-04-14] VITALS (12 sets, daily range): BP systolic 111–133; BP diastolic 57–73
[2020-04-14] MEDS: IPRATROPIUM/ALBUTEROL 0.5-3(2.5)MG/3ML NEB HHN SCH ×4 (00:34→20:31)
[2020-04-14] MEDS: CLONIDINE 0.2MG TABLET PO SCH ×4 (06:38→22:00)
[2020-04-14] MEDS: HYDRALAZINE HCL 100MG TABLET PO SCH ×4 (06:38→22:00)
[2020-04-14] MEDS: METOCLOPRAMIDE HCL 10MG/2ML VIAL IV SCH ×3 (06:38→22:05)
[2020-04-14] MEDS: OMEPRAZOLE 20MG CAPSULE EXTENDED RELEASE PO SCH ×2 (06:38→20:26)
[2020-04-14] MEDS: POTASSIUM CHLORIDE 20MEQ TABLET SR PO SCH ×3 (09:21→16:26)
[2020-04-14] MEDS: ZINC SULFATE 220 MG ( 50 ) CAPSULE PO SCH (09:21)
[2020-04-14] MEDS: METOPROLOL TARTRATE 50MG TABLET PO SCH ×2 (09:22→20:26)
[2020-04-14] MEDS: NIFEDIPINE XL 90MG TAB PO SCH (09:22)
[2020-04-14] MEDS: METOLAZONE 10MG TABLET PO SCH (09:22)
[2020-04-14] MEDS: ASCORBIC ACID 250 MG TABLET PO SCH (09:22)
[2020-04-14] MEDS: LISINOPRIL 40MG TABLET PO SCH (09:22)
[2020-04-14] MEDS: LOSARTAN POTASSIUM 100 MG TABLET PO SCH (09:22)
[2020-04-14] MEDS: ENOXAPARIN 40MG/0.4ML SYR SUBCUT SCH (09:52)
[2020-04-14 11:23] LABS: CHLORIDE 97 mEq/L (98-107)
[2020-04-14 11:24] LABS: PHOSPHORUS 2.8 mg/dL (2.5-4.9)
[2020-04-14] MEDS: ATORVASTATIN CALCIUM 20MG TABLET PO SCH (20:27)
[2020-04-15] VITALS (10 sets, daily range): BP systolic 103–169; BP diastolic 65–85
[2020-04-15] MEDS: IPRATROPIUM/ALBUTEROL 0.5-3(2.5)MG/3ML NEB HHN SCH ×3 (02:10→13:47)
[2020-04-15] MEDS: METOCLOPRAMIDE HCL 10MG/2ML VIAL IV SCH ×2 (05:20→14:53)
[2020-04-15] MEDS: HYDRALAZINE HCL 100MG TABLET PO SCH ×2 (05:21→14:53)
[2020-04-15] MEDS: OMEPRAZOLE 20MG CAPSULE EXTENDED RELEASE PO SCH (06:31)
[2020-04-15] MEDS: CLONIDINE 0.2MG TABLET PO SCH ×2 (06:32→14:53)
[2020-04-15] MEDS: ENOXAPARIN 40MG/0.4ML SYR SUBCUT SCH (08:39)
[2020-04-15] MEDS: ASCORBIC ACID 250 MG TABLET PO SCH (08:40)
[2020-04-15] MEDS: ZINC SULFATE 220 MG ( 50 ) CAPSULE PO SCH (08:40)
[2020-04-15] MEDS: LISINOPRIL 40MG TABLET PO SCH (08:40)
[2020-04-15] MEDS: METOLAZONE 10MG TABLET PO SCH (08:40)
[2020-04-15] MEDS: NIFEDIPINE XL 90MG TAB PO SCH (08:40)
[2020-04-15] MEDS: LOSARTAN POTASSIUM 100 MG TABLET PO SCH (08:40)
[2020-04-15] MEDS: METOPROLOL TARTRATE 50MG TABLET PO SCH (08:40)
[2020-04-15] MEDS: POTASSIUM CHLORIDE 20MEQ TABLET SR PO SCH ×2 (08:40→17:48)
[2020-04-15] MEDS ORDERED: FAMOTIDINE 20MG TABLET PO SCH (21:00)
== END 2020-04-15 20:25 | disposition home health service (06) | DRG 870 ==
LOC: ER 15:49 → EDBEDREQSVC 18:11 → EDBEDREQ 18:48 → ORIP 18:50 → EDBEDREQ 18:52 → ENRESERV 04-02 08:20 → CVICU 04-02 10:19 → 3WST 04-09 14:41
PROVIDERS: ADMIT Hospitalist; ATTEND Hospitalist
PROC: 5A1955Z Respiratory Ventilation, Greater than 96 Consecutive Hours (ICD-10-PCS; principal; 2020-04-01)
PROC: 0BH17EZ Insertion of Endotracheal Airway into Trachea, Via Natural or Artificial Opening (ICD-10-PCS; 2020-04-01)
PROC: 02HV33Z Insertion of Infusion Device into Superior Vena Cava, Percutaneous Approach (ICD-10-PCS; 2020-04-02)
PROC: B548ZZA Ultrasonography of Superior Vena Cava, Guidance (ICD-10-PCS; 2020-04-02)
PROC: 4A10X4Z Monitoring of Central Nervous Electrical Activity, External Approach (ICD-10-PCS; 2020-04-03)
DX: A41.9 Sepsis, unspecified organism (principal); E43 Unspecified severe protein-calorie malnutrition; G93.41 Metabolic encephalopathy; J18.9 Pneumonia, unspecified organism; G82.50 Quadriplegia, unspecified; J96.02 Acute respiratory failure with hypercapnia; N39.0 Urinary tract infection, site not specified; I50.30 Unspecified diastolic (congestive) heart failure; N17.9 Acute kidney failure, unspecified; Z68.41 Body mass index [BMI] 40.0-44.9, adult; D64.9 Anemia, unspecified; I16.0 Hypertensive urgency; E87.6 Hypokalemia; R00.1 Bradycardia, unspecified; E66.01 Morbid (severe) obesity due to excess calories; E78.5 Hyperlipidemia, unspecified; I11.0 Hypertensive heart disease with heart failure; M48.02 Spinal stenosis, cervical region; N40.0 Benign prostatic hyperplasia without lower urinary tract symptoms; E86.0 Dehydration; L89.156 Pressure-induced deep tissue damage of sacral region; Z20.828 Contact with and (suspected) exposure to other viral communicable diseases; B96.1 Klebsiella pneumoniae [K. pneumoniae] as the cause of diseases classified elsewhere; Z86.73 Personal history of transient ischemic attack (TIA), and cerebral infarction without residual deficits; Z78.1 Physical restraint status
CPT/HCPCS: 36415; 36600; 70496; 70498; 70551; 71045; 72141; 76937; 78580; 80048; 80053; 80061; 80305; 80320; 81003; 82140; 82375; 82550; 82553; 82607; 82805; 82962; 83036; 83721; 83735; 83880; 84100; 84134; 84439; 84443; 84484; 85025; 85379; 87070; 87077; 87106; 87186; 92610; 93005; 93306; 93970; 94640; 95816; 96365; 99285; C1725; C9113; J0133; J0290; J0360; J0692; J0696; J1630; J1650; J1940; J1956; J2060; J2250; J2270; J2310; J2704; J2765; J3010; J3370; J3480; J3490; J7030; J7050; J7060; Q9967; G0480; U0003-CS